=== PATIENT | male | born 1990 | race Caucasian/White ===

== ENCOUNTER → 2020-03-06 | Outpatient (CLI) | payer BC ==
--- NOTE | 2020-03-06 16:47 | XR ---
EXAMINATION TYPE: XR lumbar spine 2 or 3V DATE OF EXAM: 03/06/2020 CLINICAL HISTORY: Low back pain for one month. TECHNIQUE: Frontal and lateral images of the lumbar spine are obtained. COMPARISON: None FINDINGS: There are 5 lumbar type vertebral bodies identified. The lumbar spine shows levoconvex sc oliotic curvature positioning centered L3 level without evidence of acute fracture or dislocation. Ve rtebral body heights and disk space heights are within normal limits. The overlying soft tissue appea rs unremarkable. IMPRESSION: As above.
== END | disposition home or self-care (01) ==
LOC: RAD 16:13
PROVIDERS: ATTEND Family Medicine
DX: M41.86 Other forms of scoliosis, lumbar region (principal)
CPT/HCPCS: 72100